=== PATIENT | female | born 1940 | race Caucasian/White ===

== ENCOUNTER 2020-02-01 09:07 | Emergency (ER) | payer OTHER, MEDICARE ==
[~2020-02-01] VITALS: Ht 165.1 cm; Wt 83.9 kg
--- NOTE | 2020-02-01 09:07 | NUR ---
Patient to ER bed 2 to gown for evaluation. Side rails up. Report given to KIMBERLI ROBERTS.
[2020-02-01 09:10] VITALS: BP_SYST 162
--- NOTE | 2020-02-01 09:10 | NUR ---
Patient BIB ACLS after mechanical fall. Patient A&Ox4, hematoma to left eye and left knee, skin tear to bilat upper extremities, bleeding controlled, afebrile, denies N/V/D, pain 10/24. Patient statses she fell going int o elavator at PMD office.
[2020-02-01] MEDS ORDERED: ACETAMINOPHEN 325 MG TABLET PO ONE (09:30)
[2020-02-01] MEDS ORDERED: LIDOCAINE/PRILOCAINE 5 GM CREAM (EMLA) TP ONE (09:30)
[2020-02-01] MEDS ORDERED: fentaNYL CITRATE/PF 100 MCG/2 ML AMP IVP ONE (09:30)
[2020-02-01] MEDS ORDERED: DIPH25TA62 PO (10:06)
[2020-02-01] MEDS ORDERED: CODE10LI PO (10:06)
[2020-02-01] MEDS ORDERED: HYDR-3110 PO (10:06)
[2020-02-01] MEDS ORDERED: METO50TA7 PO (10:06)
[2020-02-01] MEDS ORDERED: LORA-259 PO (10:06)
[2020-02-01] MEDS ORDERED: AMLO2.5T2 PO (10:06)
[2020-02-01] MEDS ORDERED: ERGO2000 PO (10:06)
[2020-02-01] MEDS ORDERED: TRAZ-250 PO (10:06)
[2020-02-01] MEDS ORDERED: [UNRECOGNIZED DRUG - OTHER] INH (10:06)
[2020-02-01] MEDS ORDERED: AZIT250T PO (10:06)
[2020-02-01] MEDS ORDERED: [UNRECOGNIZED DRUG - CODE] INH (10:06)
[2020-02-01] MEDS ORDERED: NEU100 PO (10:06)
[2020-02-01] MEDS ORDERED: SIMV20TA2 PO (10:06)
[2020-02-01] MEDS ORDERED: IPRA4AER INH ×2 (10:06)
--- NOTE | 2020-02-01 10:06 | NUR ---
Medication reconciliation completed with information provided by PT. Any prior medication reconciliation on file was reviewed and corrected.
--- NOTE | 2020-02-01 10:20 | NUR ---
Patient transported to radiology via gurney, accompanied by [place].
--- NOTE | 2020-02-01 10:30 | NUR ---
Assissted radiology staff with patient in CT. Patient reports anxiety with CT procedure. Ativan given IV per order.
[2020-02-01 10:31] LABS: BASOPHILS # (AUTO) 0.1 K/uL (0.0-0.2); BASOPHILS % (AUTO) 1.2 % (0.0-2.0); EOSINOPHILS # (AUTO) 0.2 K/uL (0.0-0.4); EOSINOPHILS % (AUTO) 2.1 % (0.0-4.0); HEMATOCRIT 35.5 % (36-48); HEMOGLOBIN 12.1 g/dL (12.0-16.0); LYMPHOCYTES # (AUTO) 0.9 K/uL (1.0-5.5); LYMPHOCYTES % (AUTO) 8.4 % (20.5-51.5); MEAN CORPUSCULAR HEMOGLOBIN 33 pg (27-31); MEAN CORPUSCULAR HGB CONC 34 % (32-36); MEAN CORPUSCULAR VOLUME 96 fL (79.0-98.0); MONOCYTES # (AUTO) 0.8 K/uL (0.0-1.0); MONOCYTES % (AUTO) 7.6 % (1.7-9.3); NEUTROPHILS # (AUTO) 8.3 K/uL (1.8-7.7); NEUTROPHILS % (AUTO) 80.7 % (40.0-70.0); PLATELET COUNT (AUTO) 224 K/uL (130-430); RED BLOOD CELL COUNT(AUTO) 3.68 MIL/uL (4.2-6.2); RED CELL DISTRIBUTION WIDTH 13.7 % (9.0-15.0); WHITE BLOOD COUNT (AUTO) 10.3 K/uL (4.8-10.8)
[2020-02-01 10:39] LABS: ANION GAP 5 (5-15); CALCIUM 8.7 mg/dL (8.4-11.0); CHLORIDE 107 mmol/L (98-107); CREATININE 1.01 mg/dL (0.55-1.30); GLUCOSE 96 mg/dL (70-99); POTASSIUM 4.5 mmol/L (3.5-5.1); SODIUM SERUM 140 mmol/L (136-145); UREA NITROGEN, BLOOD 18 mg/dL (8-21)
[2020-02-01] MEDS ORDERED: LORazepam 2 MG/ML VIAL IVP ONE (10:45)
[2020-02-01 10:46] LABS: INR 1.2 (0.8-1.2)
[2020-02-01] MEDS ORDERED: LORazepam 2 MG/ML VIAL ONE (10:54)
--- NOTE | 2020-02-01 10:55 | NUR ---
Patient to ER bed 2
--- NOTE | 2020-02-01 11:18 | NUR ---
CLEANSED BUE SKIN TEARS W/ NS, BACITRACIN APPLIED, COVERED W/ NON ADHERENT DRESSING
[2020-02-01] MEDS ORDERED: BACITRACIN 1 GM OINT TP ONE (11:31)
[2020-02-01 12:47] VITALS: BP_SYST 152
--- NOTE | 2020-02-01 12:49 | NUR ---
Patient given written and verbal discharge instructions and verbalizes understanding. ER MD discussed with patient the results and treatment provided. Patient in stable condition. ID arm band removed. IV catheter removed intact and dressing applied, no active bleeding. Rx of tylenol given. Patient educated on pain management and to follow up with PMD. Pain Scale 3/10. Opportunity for questions provided and answered. Medication side effect fact sheet provided.
== END 2020-02-01 12:47 | disposition home or self-care (01) ==
LOC: SED 09:07
DX: S01.112A Laceration without foreign body of left eyelid and periocular area, initial encounter (principal); S46.912A Strain of unspecified muscle, fascia and tendon at shoulder and upper arm level, left arm, initial encounter; S80.02XA Contusion of left knee, initial encounter; I10 Essential (primary) hypertension; E11.9 Type 2 diabetes mellitus without complications; E78.00 Pure hypercholesterolemia, unspecified; J01.20 Acute ethmoidal sinusitis, unspecified; Z79.899 Other long term (current) drug therapy; W01.0XXA Fall on same level from slipping, tripping and stumbling without subsequent striking against object, initial encounter; Y93.89 Activity, other specified; Y92.89 Other specified places as the place of occurrence of the external cause; Y99.8 Other external cause status
CPT/HCPCS: 36415; 70450; 70486; 71045; 72125; 73030; 73560; 76376; 80048; 85025; 85610; 85730; 96374; 96375; 99284; J2060; J3010